=== PATIENT | female | born 1980 | race Caucasian/White ===

== ENCOUNTER 2019-08-24 13:41 | Emergency (ER) | payer OTHER ==
[~2019-08-24] VITALS: Ht 157.5 cm; Wt 62.6 kg
[2019-08-24] MEDS ORDERED: LISINOPRIL-HCT1 EAC1 PO (14:01)
[2019-08-24] MEDS ORDERED: MIGRAINE MEDICATION (14:01)
[2019-08-24 14:21] LABS: URINE BILIRUBIN NEGATIVE (Negative); URINE BLOOD NEGATIVE (Negative); URINE CLARITY CLEAR; URINE COLOR YELLOW; URINE GLUCOSE-RANDOM NEGATIVE (Negative); URINE KETONES NEGATIVE (Negative); URINE LEUKOCYTES-REFLEX NEGATIVE (Negative); URINE NITRITE-REFLEX NEGATIVE (Negative); URINE PROTEIN NEGATIVE (Negative); URINE SPECIFIC GRAVITY 1.015 (1.005-1.030); URINE UROBILINOGEN 0.2 E.U./dl (0.2-1.0)
[2019-08-24 14:49] LABS: ABSOLUTE BASOPHILS 0.1 thou/uL (0.0-0.2); ABSOLUTE EOSINOPHILS 0.3 thou/uL (0.0-0.7); ABSOLUTE LYMPHOCYTES 2.4 thou/uL (0.8-5.3); ABSOLUTE MONOCYTES 0.4 thou/uL (0.0-1.2); ABSOLUTE NEUTROPHILS 4.3 thou/uL (1.6-8.1); BASOPHILS 0.9 %; EOSINOPHILS 4.6 %; HEMATOCRIT 43.3 % (37.0-47.0); HEMOGLOBIN 15.5 gm/dL (12.0-15.0); LYMPHOCYTES 32.1 %; MCH 30.4 pg (26.0-34.0); MCHC 35.7 g/dL (28.0-37.0); MCV 85.1 fL (80.0-100.0); MONOCYTES 5.3 %; MPV 7.3 fl. (7.2-11.1); NUCLEATED RBCS 0 /100WBC; PLATELET COUNT* 368 thou/uL (150-400); POLYS 57.1 %; RBC 5.09 mil/uL (4.20-5.00); RDW-CV 12.7 % (10.5-14.5); WBC 7.4 thou/uL (4.0-11.0)
[2019-08-24 14:59] LABS: CALCIUM 8.5 mg/dL (8.5-10.1); CREATININE 0.7 mg/dL (0.6-1.3); POTASSIUM 3.8 mmol/L (3.5-5.1)
[2019-08-24 15:05] LABS: TOTAL BILIRUBIN 0.4 mg/dL (<0.1-1.0); TOTAL PROTEIN 8.3 g/dL (6.4-8.2)
[2019-08-24] MEDS ORDERED: ONDANSETRON HCL4 M2 PO (15:21)
[2019-08-24] MEDS ORDERED: AUGMENTIN 875-1 EACH PO (15:21)
[2019-08-24 15:35] VITALS: BP 125/88
--- NOTE | 2019-08-28 13:56 | EKG ---
[place] [address] ELECTROCARDIOGRAM REPORT Name: LETICIA BUCIO Room: [facility]#: [id number] Admission: 08/24/19 Attend Phys: Discharge: 08/24/19 Date of : 76 Date of Service: 08/24/19 1417 Report #: [id number] THIS REPORT FOR: cc: ANNE - Leanne family physician/PCP ANNE - No family physician/PCP Cameron Phillip MD [facility] ~ THIS REPORT FOR: //name// [facility] ED Test Date: 2019-08-24 Test Time: 14:17:02 Pat Name: LETICIA BUCIO Department: Room: Gender: F Cardiopulmonary Technologist: : 1980 Requested By: Apple Tian Order Number: [id number] MD: Cameron Phillip Measurements Intervals [place] Rate: 78 P: 36 ME: 167 QRS: 31 QRSD: 88 T: 17 QT: 412 QTc: 470 Interpretive Statements Sinus rhythm Consider left ventricular hypertrophy Baseline wander in lead(s) V3 No previous ECG available for comparison Electronically Signed On 08-25-2019 11:00:03 [employer] by Cameron Phillip [email or web address] <ELECTRONICALLY SIGNED> By: Cameron Phillip MD, FAC 08/25/19 1100 1417 1417 Cameron Phillip MD, FAC /EPI
== END 2019-08-24 15:36 | disposition home or self-care (01) ==
LOC: M.ERS 13:41
PROVIDERS: Nurse Practitioner Family
DX: J32.3 Chronic sphenoidal sinusitis (principal); I10 Essential (primary) hypertension; G43.909 Migraine, unspecified, not intractable, without status migrainosus; Z88.6 Allergy status to analgesic agent

== ENCOUNTER 2021-06-26 11:49 | Emergency (ER) | payer BC, OTHER ==
[~2021-06-26] VITALS: Ht 157.5 cm; Wt 63.5 kg
[~2021-06-26 11:49] MED LIST: AUGMENTIN 875-1 EACH PO; LISINOPRIL-HCT1 EAC1 PO; MIGRAINE MEDICATION; ONDANSETRON HCL4 M2 PO
[2021-06-26] MEDS ORDERED: LISINOPRIL20 MG PO (12:15)
[2021-06-26] MEDS ORDERED: CORICIDIN COLD1 EACH PO (12:16)
[2021-06-26 13:20] LABS: INFLUENZA A ANTIGEN Positive (Negative); INFLUENZA B ANTIGEN Negative (Negative)
[2021-06-26] MEDS ORDERED: TAMIFLU75 MG PO (13:30)
[2021-06-26 14:09] VITALS: BP 139/93
== END 2021-06-26 14:09 | disposition home or self-care (01) ==
LOC: M.ERS 11:49
PROVIDERS: Emergency Medicine Emergency Medical Services
DX: J09.X2 Influenza due to identified novel influenza A virus with other respiratory manifestations (principal); Z20.822 Contact with and (suspected) exposure to COVID-19; I10 Essential (primary) hypertension; G43.909 Migraine, unspecified, not intractable, without status migrainosus; Z79.899 Other long term (current) drug therapy; Z88.6 Allergy status to analgesic agent